=== PATIENT | female | born 1960 | race Caucasian/White ===

== ENCOUNTER → 2020-04-18 | Outpatient (CLI) | payer OTHER ==
--- NOTE | 2020-04-18 10:20 | CT ---
EXAMINATION TYPE: CT iac wo con DATE OF EXAM: 04/18/2020 COMPARISON: None HISTORY: Cholesteatoma of tympanum left ear CT DLP: 150.00mGycm Automated exposure control for dose reduction was used. FINDINGS: The external auditory canals are patent bilaterally. Mastoid air cells show no evidence of abnormal opacification bilaterally. The middle ear ossicles are symmetric and unremarkable. There is no evidence of suspicious surrounding soft tissue density to suggest cholesteatoma. The scutum is preserved bilaterally. The cochlea and the semicircular canals are symmetric and unremarkable. Ves tibular aqueduct and internal carotid canal appear unremarkable. Temporomandibular joints are mainta ined bilaterally. IMPRESSION: No significant abnormality seen to account for patient's symptoms.
== END | disposition home or self-care (01) ==
LOC: RADCTMAIN 09:17
PROVIDERS: ATTEND Otolaryngology
DX: H71.12 Cholesteatoma of tympanum, left ear (principal)
CPT/HCPCS: 70480

== ENCOUNTER → 2020-06-06 | Outpatient (CLI) | payer OTHER ==
[2020-06-06 14:51] LABS: HCT 44.5 % (37.2-46.3); HGB 14.6 g/dL (12.0-15.0); MCH 30.2 pg (27.0-32.0); MCHC 32.8 g/dL (32.0-37.0); MCV 91.9 fL (80.0-97.0); Mean Platelet Volume 11.8 fL (9.5-12.2); Platelet Count 197 X 10*3/uL (140-440); RBC 4.84 X 10*6/uL (4.10-5.20); RDW 12.1 % (11.5-14.5); WBC 4.33 X 10*3/uL (4.50-10.00)
[2020-06-06 16:02] LABS: African American GFR (CKD) 92.9 (60.0-200.0); Albumin 4.5 g/dL (3.80-4.90); Albumin/Globulin Ratio 2.05 (1.60-3.17); Anion Gap 7.3 mmol/L (4.00-12.00); Calcium 9.6 mg/dL (8.7-10.3); Carbon Dioxide 24.7 mmol/L (21.6-31.8); Globulin 2.2 g/dL (1.6-3.3); Non-African American GFR(CKD) 80.1 (60.0-200.0); Potassium 4.4 mmol/L (3.5-5.5); Total Bilirubin 0.6 mg/dL (0.3-1.2); Total Protein 6.7 g/dL (6.2-8.2)
[2020-06-06 16:03] LABS: Chol/HDL Ratio 3.42; LDL Cholesterol,Calculated 132.2 mg/dL (0.0-131.0); VLDL Calculation 17.8 mg/dL (5.00-40.00)
== END | disposition home or self-care (01) ==
LOC: LABWHC1 09:36
PROVIDERS: ATTEND Specialist
DX: E78.5 Hyperlipidemia, unspecified (principal)
CPT/HCPCS: 36415; 80053; 80061; 82306; 84443; 85027

== ENCOUNTER → 2021-07-31 | Outpatient (CLI) | payer OTHER ==
[2021-07-31 18:11] LABS: Basophils # (A) 0.02 X 10*3/uL (0.00-0.10); Basophils % (A) 0.5 %; Eosinophils # (A) 0.07 X 10*3/uL (0.04-0.35); Eosinophils % (A) 1.7 %; HCT 46.3 % (37.2-46.3); Immature Grans, Automated 0.2 %; Lymphocytes % (A) 40.1 %; MCH 30.4 pg (27.0-32.0); MCHC 32.4 g/dL (32.0-37.0); MCV 93.9 fL (80.0-97.0); Mean Platelet Volume 11.5 fL (9.5-12.2); Monocytes % (A) 9.4 %; NRBC Per 100 WBC 0 /100 WBCS (0.0-0.0); Neutrophils # (A) 2.04 X 10*3/uL (1.80-7.70); Neutrophils % (A) 48.1 %; Platelet Count 198 X 10*3/uL (140-440); RBC 4.93 X 10*6/uL (4.10-5.20); RDW 12.4 % (11.5-14.5); WBC 4.24 X 10*3/uL (4.50-10.00)
[2021-07-31 18:59] LABS: ALT 21 U/L (8-44); AST 20 U/L (13-35); African American GFR (CKD) 108.4 (60.0-200.0); Albumin 4.6 g/dL (3.8-4.9); Albumin/Globulin Ratio 1.84 (1.60-3.17); Alkaline Phosphatase 85 U/L (41-126); BUN/Creat Ratio 18.86 Ratio (12.00-20.00); Blood Urea Nitrogen 13.2 mg/dL (9.0-27.0); Calcium 9.4 mg/dL (8.7-10.3); Chloride 106 mmol/L (96-109); Chol/HDL Ratio 3.31 Ratio; Globulin 2.5 g/dL (1.6-3.3); Glucose 94 mg/dL (70-110); LDL Cholesterol,Calculated 133.6 mg/dL (0.0-131.0); Non-African American GFR(CKD) 93.5 (60.0-200.0); Sodium 142 mmol/L (135-145); Total Protein 7.1 g/dL (6.2-8.2)
== END | disposition home or self-care (01) ==
LOC: LABWHC1 10:15
PROVIDERS: ATTEND Specialist
DX: Z01.411 Encounter for gynecological examination (general) (routine) with abnormal findings (principal)
CPT/HCPCS: 36415; 80053; 80061; 82306; 84443; 85025

== ENCOUNTER → 2021-09-19 | Outpatient (CLI) | payer OTHER ==
--- NOTE | 2021-09-19 17:18 | US ---
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 GLAND SIZE: Right Lobe: 5.6 x 1.7 x 2.6 cm Overall Parenchyma: heterogenous Left Lobe: 6.0 x 1.7 x 2.1 cm Overall Parenchyma: heterogeneous Isthmus Thickness: 0.3 cm NODULES RIGHT: # of nodules measured on right: multiple subcentimeter nodules LEFT: # of nodules measured on left: multiple subcentimeter nodules ISTHMUS: # of nodules measured in the isthmus: 0 Bilateral neck scanned, no evidence of lymphadenopathy. Persistent slightly heterogeneous and slightly enlarged thyroid with scattered small nodules. IMPRESSION: As above. No significant change from prior. No significant new or enlarging greater than 1 cm solid nodules.
== END | disposition home or self-care (01) ==
LOC: RADUSWWP 16:12
PROVIDERS: ATTEND Specialist
DX: E04.2 Nontoxic multinodular goiter (principal)
CPT/HCPCS: 76536

== ENCOUNTER → 2022-07-24 | Outpatient (CLI) | payer OTHER ==
--- NOTE | 2022-07-24 17:55 | BD ---
EXAMINATION TYPE: Axial Bone Density DATE OF EXAM: 07/24/2022 CLINICAL HISTORY: 62 years old Female. ICD-10 CODE: Z13.820 ENCOUNTER FOR SCREENING FOR OSTEOPOROSIS Height: 62.7 in Weight: 159 lbs RISK FACTORS HISTORY OF: Active: yes Diet low in dairy products/other sources of calcium: yes Postmenopausal woman: age 52 MEDICATIONS: Additional Medications: none EXAM MEASUREMENTS: Bone mineral densitometry was performed using the [employer]. Bone mineral density as measured about the Lumbar spine is: ----- L1-L4(G/cm2): 1.052 T Score Values are as follows: ----- L1: -0.9 ----- L2: -1.5 ----- L3: -1.2 ----- L4: -0.9 ----- L1-L4: -1.1 Z Score Values are as follows: ----- L1: 0.2 ----- L2: -0.4 ----- L3: -0.1 ----- L4: 0.3 ----- L1-L4: 0.1 Bone mineral density has: Decreased -5.1% since study of: 12/18/2015 Bone mineral density about the R hip (g/cm2): 0.947 Bone mineral density about the L hip (g/cm2): 0.949 T Score values are as follows: -----R Neck: -1.1 -----L Neck: -1.1 -----R Total: -0.5 -----L Total: -0.5 Z Score values are as follows: -----R Neck: 0.1 -----L Neck: 0.0 -----R Total: 0.4 -----L Total: 0.4 Bone mineral density has: Decreased -0.6% since study of: 12/18/2015 FRAX%s: The graph provided illustrates a 7.6% chance for a major osteoporotic fx and a 0.5% chance fo r the hips probability for fx in 10 years time. IMPRESSION: Osteopenia (T Score between -2.5 and -1). There is slightly increased risk of fracture and the patient may be considered for treatment. Re-Screen 2-5 years. NOTE: T-SCORE=SD OF THE YOUNG ADULT MEAN.
== END | disposition home or self-care (01) ==
LOC: RADBDWWP 09:12
PROVIDERS: ATTEND Specialist
DX: Z13.820 Encounter for screening for osteoporosis (principal); M85.89 Other specified disorders of bone density and structure, multiple sites
CPT/HCPCS: 77080